=== PATIENT | female | born 1995 | race Caucasian/White ===

== ENCOUNTER 2018-11-13 16:03 | Emergency (ER) | payer MEDICAID ==
[~2018-11-13] VITALS: Ht 157.5 cm; Wt 77.0 kg
--- NOTE | 2018-11-13 16:21 | NUR ---
4 MG ZOFRAN GIVEN IN TRIAGE PER PROTOCOL.
[2018-11-13] MEDS ORDERED: ONDANSETRON ODT 4 MG PO ONE (16:30)
--- NOTE | 2018-11-13 17:02 | NUR ---
Pt ambulated to room with extension service specialist in charge.
[2018-11-13 17:17] VITALS: BP 137/64
--- NOTE | 2018-11-13 17:18 | NUR ---
Dr. Trejo at bedside to evaluate pt.
--- NOTE | 2018-11-13 17:27 | NUR ---
Urine sample sent to lab.
[2018-11-13] MEDS ORDERED: ONDANSETRON 2MG/ML, 2ML IVPush ONE (17:30)
[2018-11-13] MEDS ORDERED: SODIUM CHLORIDE 0.9% 1,000ML IVBOLUS ONE (17:30)
[2018-11-13] MEDS ORDERED: SODIUM CHLORIDE FLUSH 10ML SYR IVF ONE (17:30)
[2018-11-13 17:38] LABS: HCG UR SG 1.024 (1.003-1.030)
--- NOTE | 2018-11-13 17:54 | NUR ---
PT TOLERATING WATER AND DENIES NAUSEA. PT STATES SHE IS HUNGRY. GIVEN CRACKERS AND APPLE SAUCE. STANDING IN ROOM, NO DISTRESS
--- NOTE | 2018-11-13 17:59 | NUR ---
Patient/Caregiver given discharge instructions and they have confirmed that they understand the instructions. Patient ambulatory with steady gait.
== END 2018-11-13 18:00 | disposition home or self-care (01) ==
LOC: ED 17:45
DX: R11.2 Nausea with vomiting, unspecified (principal)
CPT/HCPCS: 81025; 93005; 99284; Q0162